=== PATIENT | male | born 1955 | race Caucasian/White ===

== ENCOUNTER → 2017-12-23 | Outpatient (CLI) | payer OTHER ==
[~2017-12-23] MED LIST: ACETAMINOPHEN-1 EAC1 PO; ALKA-SELTZER E1 EACH; ASPIR 8181 MG PO; B-12500 MC1 SL; BENAZEPRIL HCL20 MG; CLONAZEPAM 0.50.5 M1; FLEXERIL PO; GLIPIZIDE 10 MG10 MG PO; HYDROCODONE-AP1 EAC6; HYDROCODONE-APA1 TA1; LOTENSIN; MEDROLDOSEPACK PO; METFORMIN; MOBIC7.5 MG PO; NAPROSYN500 MG PO; NEURONTIN250 MG/5 M PER TUBE; NORCO 5-325 TA1 EACH PO; PRAVACHOL 20 MG20 M1; ROBAXIN 750 MG750 M1 PO; ROBAXIN500 MG PO; [UNRECOGNIZED DRUG - REMARK]
== END ==
LOC: M.RAD 14:25
DX: M47.896 Other spondylosis, lumbar region (principal); M54.42 Lumbago with sciatica, left side; G89.29 Other chronic pain

== ENCOUNTER 2018-02-17 19:53 | Emergency (ER) | payer OTHER ==
[~2018-02-17] VITALS: Ht 177.8 cm; Wt 108.9 kg
[2018-02-17 19:57] VITALS: BP 147/81
[2018-02-17 20:46] LABS: ABSOLUTE BASOPHILS 0.1 thou/uL (0.0-0.2); ABSOLUTE EOSINOPHILS 0.2 thou/uL (0.0-0.7); ABSOLUTE LYMPHOCYTES 1.8 thou/uL (0.8-5.3); ABSOLUTE MONOCYTES 0.6 thou/uL (0.0-1.2); ABSOLUTE NEUTROPHILS 3.9 thou/uL (1.6-8.1); EOSINOPHILS 2.5 %; HEMATOCRIT 36.3 % (42.0-52.0); HEMOGLOBIN 12.1 gm/dL (14.0-18.0); MCH 30.3 pg (26.0-34.0); MCHC 33.2 g/dL (28.0-37.0); MCV 91.4 fL (80.0-100.0); MPV 9.4 fl. (7.2-11.1); NUCLEATED RBCS 0 /100WBC; PLATELET COUNT* 238 thou/uL (150-400); POLYS 59.5 %; RBC 3.98 mil/uL (4.50-6.00); RDW-CV 14.3 % (10.5-14.5); WBC 6.6 thou/uL (4.0-11.0)
[2018-02-17 20:57] LABS: ANION GAP 12 mmol/L (7-16); BUN 34 mg/dL (7-18); CALCIUM 9.1 mg/dL (8.5-10.1); CHLORIDE 98 mmol/L (98-107); CO2 24 mmol/L (21-32); CREATININE 2.7 mg/dL (0.6-1.3); SODIUM 134 mmol/L (136-145)
[2018-02-17 21:01] LABS: ALBUMIN 3.6 g/dL (3.4-5.0); ALKALINE PHOSPHATASE 99 U/L (46-116); SGOT 18 U/L (15-37); SGPT 47 U/L (30-65); TOTAL BILIRUBIN 0.2 mg/dL (<0.1-1.0); TOTAL PROTEIN 7.5 g/dL (6.4-8.2); TROPONIN-I LEVEL <0.06 ng/mL (<0.06)
[2018-02-17 21:02] LABS: URINE BILIRUBIN NEGATIVE (Negative); URINE BLOOD NEGATIVE (Negative); URINE CLARITY CLEAR; URINE COLOR YELLOW; URINE GLUCOSE-RANDOM 3+ (Negative); URINE KETONES NEGATIVE (Negative); URINE LEUKOCYTES-REFLEX NEGATIVE (Negative); URINE NITRITE-REFLEX NEGATIVE (Negative); URINE PROTEIN NEGATIVE (Negative); URINE UROBILINOGEN 0.2 E.U./dl (0.2-1.0)
[2018-02-17 21:05] LABS: GLUCOSE 556 mg/dL (70-99)
[2018-02-17 21:10] LABS: AMP/METHAMP Negative (Negative); BARBITURATES Negative (Negative); BENZODIAZEPINES Negative (Negative); COCAINE Negative (Negative); METHADONE Negative (Negative); OPIATES Negative (Negative); PCP Negative (Negative); THC Negative (Negative)
--- NOTE | 2018-02-17 21:23 | NUR ---
ct head, l/spine compleated patient returned to ED
[2018-02-17 22:35] VITALS: BP 155/94
== END 2018-02-17 22:35 | disposition left against medical advice (07) ==
LOC: M.ERS 19:53 → M.TBA-ER 21:45 → M.ERS 21:45
PROVIDERS: Personal Emergency Response Attendant
DX: N17.9 Acute kidney failure, unspecified (principal); R27.0 Ataxia, unspecified; E11.65 Type 2 diabetes mellitus with hyperglycemia; I10 Essential (primary) hypertension; Z85.528 Personal history of other malignant neoplasm of kidney